=== PATIENT | female | born 1965 | race Asian ===

== ENCOUNTER 2017-05-24 08:53 | Inpatient (IN) | payer OTHER ==
[~2017-05-24] VITALS: Ht 152.4 cm; Wt 51.0 kg
[~2017-05-24 08:53] MED LIST: ALPOS OU; CIP500 PO; DEPL PO; FIBER-LAX PO; FLOINH4 INH; FOL1 PO; HYD25 PO; LAM25 PO; LOP50 PO; MULTIVITAMIN PO; OYSTER SHELL CAL PO; PRI20 PO; SUD30 PO; SYN5 PO; VITAMIN D3 PO; VITC PO; ZOC20 PO; [UNRECOGNIZED DRUG - CODE] PO; [UNRECOGNIZED DRUG - CODE] TOP
[2017-05-24 10:07] LABS: UA SPECIFIC GRAVITY <=1.005 (1.005-1.035); microscopic required? YES; urine erythrocyte 2+ (NEGATIVE)
[2017-05-24 10:46] LABS: RED CELL DISTRIBUTION WIDTH 14.2 % (11.5-14.5)
[2017-05-24 10:49] LABS: PLATELET COUNT 116 x10^3mcL (130-400)
[2017-05-24 11:00] LABS: BILIRUBIN TOTAL 0.6 mg/dL (0.20-1.00); CALCIUM 8.7 mg/dL (8.5-10.1); CARBON DIOXIDE 30.4 mmol/L (21-32); CREATININE SERUM 1.3 mg/dL (0.6-1.0); T4(THYROXINE) 8.6 ug/dL (4.7-13.3); TOTAL PROTEIN, SERUM 6.2 g/dL (6.4-8.2)
[2017-05-24 11:01] LABS: ALBUMIN 2.3 g/dL (3.4-5.0)
[2017-05-24 11:08] LABS: AMPHETAMINE QUAL UR NONE DETECTED (NEG <=1000)
[2017-05-24 11:20] LABS: BAND NEUTROPHIL 2 % (0-10); MONOCYTE 14 % (0-7); SEGMENTED NEUTROPHILS 78 % (37-75); rbc morphology (normal/abnorm) NORMAL (NORMAL)
[2017-05-24 13:31] VITALS: BP 102/61
[2017-05-24 13:41] LABS: MAGNESIUM 2.1 mg/dL (1.8-2.4)
[2017-05-24 13:44] LABS: CHOLESTEROL/HDL RATIO 5.4
[2017-05-24 13:50] LABS: T3 TOTAL 0.52 ng/mL
[2017-05-24 13:51] LABS: FREE T4 1.61 ng/dL (0.76-1.46); FREE THYROXINE INDEX 3.3 ug/dL (1.4-4.5); T4(THYROXINE) 8.6 ug/dL (4.7-13.3)
[2017-05-24] MEDS ORDERED: FLORANEX1 CT2 PO (15:15)
[2017-05-24] MEDS ORDERED: ADOINT TOP (15:19)
[2017-05-24 16:09] VITALS: BP 95/57
[2017-05-24 17:25] VITALS: BP 99/52
[2017-05-24 17:27] VITALS: Ht 152.4 cm; Wt 51.0 kg
[2017-05-25 06:27] VITALS: BP 104/62
[2017-05-25 06:56] LABS: CALCIUM 9.1 mg/dL (8.5-10.1); CARBON DIOXIDE 24.2 mmol/L (21-32); CREATININE SERUM 1.2 mg/dL (0.6-1.0); POTASSIUM SERUM 3.5 mmol/L (3.5-5.1)
[2017-05-25 07:32] LABS: RED CELL DISTRIBUTION WIDTH 14.4 % (11.5-14.5)
[2017-05-25 07:33] LABS: PLATELET COUNT 122 x10^3mcL (130-400)
[2017-05-25 07:49] VITALS: BP 102/58
[2017-05-25 10:17] VITALS: BP 102/58
[2017-05-25 11:47] LABS: BAND NEUTROPHIL 4 % (0-10); BASOPHIL 0 % (0-2); MONOCYTE 7 % (0-7); SEGMENTED NEUTROPHILS 86 % (37-75)
[2017-05-25 11:48] LABS: PLATELET MORPHOLOGY PLATELETS DECREASED; rbc morphology (normal/abnorm) ABNORMAL (NORMAL)
[2017-05-25 14:39] VITALS: BP 102/46
[2017-05-25 17:26] VITALS: BP 105/58
[2017-05-25 21:00] VITALS: BP 90/60
[2017-05-26 05:45] VITALS: BP 97/56
[2017-05-26 07:38] LABS: PLATELET COUNT 163 x10^3mcL (130-400)
[2017-05-26 07:49] LABS: RED CELL DISTRIBUTION WIDTH 14.7 % (11.5-14.5)
[2017-05-26 07:55] LABS: CALCIUM 9.5 mg/dL (8.5-10.1); CARBON DIOXIDE 28.3 mmol/L (21-32); CREATININE SERUM 1.4 mg/dL (0.6-1.0); POTASSIUM SERUM 3.5 mmol/L (3.5-5.1)
[2017-05-26 10:00] VITALS: BP 102/61
[2017-05-26 11:08] LABS: BAND NEUTROPHIL 4 % (0-10); BASOPHIL 0 % (0-2); SEGMENTED NEUTROPHILS 55 % (37-75)
[2017-05-26 11:09] LABS: MONOCYTE 26 % (0-7)
[2017-05-26 17:59] VITALS: BP 96/53
[2017-05-27 05:32] VITALS: BP 97/68
[2017-05-27 09:28] LABS: PLATELET COUNT 207 x10^3mcL (130-400)
[2017-05-27 10:03] VITALS: BP 98/62
[2017-05-27 11:39] LABS: RED CELL DISTRIBUTION WIDTH 15.3 % (11.5-14.5)
[2017-05-27 12:00] LABS: ATYPICAL LYMPH 6 %; BAND NEUTROPHIL 4 % (0-10); BASOPHIL 0 % (0-2); MONOCYTE 24 % (0-7); MYELOCYTE 3 % (0-2); SEGMENTED NEUTROPHILS 40 % (37-75)
[2017-05-27 12:01] LABS: PLATELET MORPHOLOGY PLATELETS NORMAL; rbc morphology (normal/abnorm) ABNORMAL (NORMAL)
[2017-05-27 17:48] VITALS: BP 165/75; BP 96/64
[2017-05-27 20:00] VITALS: BP 113/73
[2017-05-27 21:37] VITALS: BP 97/60
[2017-05-28 05:35] VITALS: BP 99/67
[2017-05-28 06:29] LABS: CALCIUM 8.8 mg/dL (8.5-10.1); CREATININE SERUM 1.2 mg/dL (0.6-1.0); MAGNESIUM 2.1 mg/dL (1.8-2.4); PHOSPHOROUS 3.9 mg/dL (2.5-4.9); POTASSIUM SERUM 3.7 mmol/L (3.5-5.1)
[2017-05-28 06:48] LABS: PLATELET COUNT 258 x10^3mcL (130-400)
[2017-05-28 07:09] LABS: RED CELL DISTRIBUTION WIDTH 15.4 % (11.5-14.5)
[2017-05-28 09:35] LABS: BAND NEUTROPHIL 5 % (0-10); BASOPHIL 0 % (0-2); MONOCYTE 24 % (0-7); MYELOCYTE 2 % (0-2); PLATELET MORPHOLOGY PLATELETS NORMAL; SEGMENTED NEUTROPHILS 49 % (37-75); rbc morphology (normal/abnorm) ABNORMAL (NORMAL)
[2017-05-28 09:55] VITALS: BP 110/43
[2017-05-28 10:02] VITALS: BP 137/63
[2017-05-28 17:31] VITALS: BP 106/60
[2017-05-28 20:55] VITALS: BP 106/56
[2017-05-29 05:53] VITALS: BP 99/57
[2017-05-29 06:13] LABS: PLATELET COUNT 297 x10^3mcL (130-400)
[2017-05-29 06:17] LABS: CALCIUM 8.7 mg/dL (8.5-10.1); CARBON DIOXIDE 26.1 mmol/L (21-32); CREATININE SERUM 1.2 mg/dL (0.6-1.0); POTASSIUM SERUM 3.8 mmol/L (3.5-5.1)
[2017-05-29 06:23] LABS: ALBUMIN 1.7 g/dL (3.4-5.0)
[2017-05-29 07:19] LABS: RED CELL DISTRIBUTION WIDTH 15.2 % (11.5-14.5)
[2017-05-29 09:00] VITALS: BP 97/50
[2017-05-29 10:30] LABS: BAND NEUTROPHIL 8 % (0-10); MONOCYTE 19 % (0-7); MYELOCYTE 1 % (0-2); SEGMENTED NEUTROPHILS 60 % (37-75)
[2017-05-29 10:31] LABS: rbc morphology (normal/abnorm) NORMAL (NORMAL)
[2017-05-29 17:31] VITALS: BP 88/52
[2017-05-29 18:00] VITALS: BP 90/55
[2017-05-29 21:29] VITALS: BP 105/47
[2017-05-30 06:02] VITALS: BP 100/61
[2017-05-30 06:36] LABS: CALCIUM 8.8 mg/dL (8.5-10.1); CARBON DIOXIDE 23.2 mmol/L (21-32); CREATININE SERUM 1.1 mg/dL (0.6-1.0); POTASSIUM SERUM 3.4 mmol/L (3.5-5.1)
[2017-05-30 06:37] LABS: PLATELET COUNT 356 x10^3mcL (130-400)
[2017-05-30 07:19] LABS: RED CELL DISTRIBUTION WIDTH 15.6 % (11.5-14.5)
[2017-05-30 09:59] VITALS: BP 108/59
[2017-05-30 10:08] LABS: BAND NEUTROPHIL 6 % (0-10); BASOPHIL 0 % (0-2); MYELOCYTE 1 % (0-2); SEGMENTED NEUTROPHILS 69 % (37-75)
[2017-05-30 10:09] LABS: MONOCYTE 11 % (0-7)
[2017-05-30 10:12] LABS: rbc morphology (normal/abnorm) ABNORMAL (NORMAL)
[2017-05-30 10:13] LABS: target cell (codocyte) 1+
[2017-05-30 17:38] VITALS: BP 107/59
[2017-05-30 20:00] VITALS: BP 105/56
[2017-05-31 06:18] LABS: CALCIUM 8.7 mg/dL (8.5-10.1); CARBON DIOXIDE 21.8 mmol/L (21-32); CREATININE SERUM 1.1 mg/dL (0.6-1.0); MAGNESIUM 1.9 mg/dL (1.8-2.4); PHOSPHOROUS 4.1 mg/dL (2.5-4.9); POTASSIUM SERUM 3.4 mmol/L (3.5-5.1)
[2017-05-31 06:19] VITALS: BP 110/71
[2017-05-31 06:42] LABS: PLATELET COUNT 386 x10^3mcL (130-400)
[2017-05-31 07:40] LABS: RED CELL DISTRIBUTION WIDTH 16.2 % (11.5-14.5)
[2017-05-31 09:13] LABS: BAND NEUTROPHIL 5 % (0-10); BASOPHIL 0 % (0-2); MONOCYTE 10 % (0-7); MYELOCYTE 2 % (0-2); SEGMENTED NEUTROPHILS 73 % (37-75); rbc morphology (normal/abnorm) ABNORMAL (NORMAL)
[2017-05-31 09:15] LABS: target cell (codocyte) 1+
[2017-05-31 10:24] VITALS: BP 131/64
[2017-05-31 17:07] VITALS: BP 107/66
[2017-05-31 21:36] VITALS: BP 97/51
[2017-06-01 05:47] VITALS: BP 123/73
[2017-06-01 06:45] LABS: BASOPHIL % 0.2 % (0-2)
[2017-06-01 06:47] LABS: PLATELET COUNT 423 x10^3mcL (130-400); RED CELL DISTRIBUTION WIDTH 16.1 % (11.5-14.5)
[2017-06-01 06:55] LABS: CALCIUM 8.4 mg/dL (8.5-10.1); CARBON DIOXIDE 21.6 mmol/L (21-32); CREATININE SERUM 1.2 mg/dL (0.6-1.0); POTASSIUM SERUM 3.9 mmol/L (3.5-5.1)
[2017-06-01 09:25] VITALS: BP 85/36
[2017-06-01 10:36] VITALS: BP 110/56
[2017-06-01 13:34] VITALS: BP 109/62
[2017-06-01 18:23] VITALS: BP 114/62
[2017-06-01 19:08] LABS: RED BLOOD CELLS 3.18 M/mm3 (4.10-5.10)
[2017-06-01 19:26] LABS: IRON 41 ug/dL (50-170)
[2017-06-01 19:28] LABS: TOTAL IRON BINDING CAPACITY 73 ug/dL (250-450)
[2017-06-02] VITALS (7 sets, daily range): BP systolic 78–102; BP diastolic 39–63
[2017-06-02 06:15] LABS: BASOPHIL % 0.5 % (0-2)
[2017-06-02 06:24] LABS: CALCIUM 8.4 mg/dL (8.5-10.1); CREATININE SERUM 1.3 mg/dL (0.6-1.0); POTASSIUM SERUM 3.9 mmol/L (3.5-5.1)
[2017-06-02 07:35] LABS: PLATELET COUNT 420 x10^3mcL (130-400); RED CELL DISTRIBUTION WIDTH 16.4 % (11.5-14.5)
[2017-06-03 04:49] VITALS: BP 107/43
[2017-06-03 07:18] LABS: BASOPHIL % 0.3 % (0-2)
[2017-06-03 07:21] LABS: PLATELET COUNT 410 x10^3mcL (130-400); RED CELL DISTRIBUTION WIDTH 15.7 % (11.5-14.5)
[2017-06-03 07:37] LABS: CALCIUM 8.3 mg/dL (8.5-10.1); CREATININE SERUM 1.3 mg/dL (0.6-1.0); POTASSIUM SERUM 3.7 mmol/L (3.5-5.1)
[2017-06-03 07:39] LABS: ALBUMIN 1.4 g/dL (3.4-5.0)
[2017-06-03 08:15] VITALS: BP 92/56
[2017-06-03 08:30] VITALS: BP 92/56
[2017-06-03] MEDS ORDERED: LEVAQUIN750 MG PO (13:10)
[2017-06-03] MEDS ORDERED: CLEOCIN HCL300 MG PO (13:14)
[2017-06-03 13:19] VITALS: BP 92/56
[2017-06-03 14:34] VITALS: BP 103/60
[2017-06-03] MEDS ORDERED: MVIL PO (15:26)
[2017-06-03] MEDS ORDERED: BETAMETHASONE D0.051 TP (15:26)
[2017-06-03] MEDS ORDERED: D-10001 TAB PO (15:26)
[2017-06-03] MEDS ORDERED: LOMOTIL1 TAB PO (15:37)
== END 2017-06-03 16:06 | disposition home health service (06) | DRG 177 ==
LOC: ED 08:53 → MU 11:49 → DU 11:49 → MU 05-27 09:37
PROVIDERS: Emergency Medicine; Family Medicine; ADMIT Family Medicine
DX: J69.0 Pneumonitis due to inhalation of food and vomit (principal); E43 Unspecified severe protein-calorie malnutrition; N17.0 Acute kidney failure with tubular necrosis; N39.0 Urinary tract infection, site not specified; E87.0 Hyperosmolality and hypernatremia; G80.9 Cerebral palsy, unspecified; G40.909 Epilepsy, unspecified, not intractable, without status epilepticus; D64.9 Anemia, unspecified; E87.6 Hypokalemia; E78.5 Hyperlipidemia, unspecified; E03.9 Hypothyroidism, unspecified; H40.9 Unspecified glaucoma; Z68.22 Body mass index [BMI] 22.0-22.9, adult; Z99.3 Dependence on wheelchair; Z66 Do not resuscitate; Z51.5 Encounter for palliative care
CPT/HCPCS: 82962; 83880; 84439; 87046; 87046-59; 90732; 92526-GN; 92610; 92611-GN; J0696; J1956; J2060; J2543; J3490; J7030; J7620; Q0092; Q9967

== ENCOUNTER 2018-10-13 09:37 | Inpatient (IN) | payer OTHER ==
[~2018-10-13] VITALS: Ht 152.4 cm; Wt 54.0 kg
[~2018-10-13 09:37] MED LIST changes: +ADOINT TOP; +BETAMETHASONE D0.051 TP; +CLEOCIN HCL300 MG PO; +D-10001 TAB PO; +FLORANEX1 CT2 PO; +LEVAQUIN750 MG PO; +LOMOTIL1 TAB PO; +MVIL PO
[2018-10-13 10:33] LABS: BASOPHIL % 0.1 % (0-2); PLATELET COUNT 198 x10^3mcL (130-400); RED CELL DISTRIBUTION WIDTH 13.4 % (11.5-14.5)
[2018-10-13 10:56] LABS: BILIRUBIN TOTAL 0.21 mg/dL (0.20-1.00); CARBON DIOXIDE 29.7 mmol/L (21-32); CREATININE SERUM 1.5 mg/dL (0.6-1.0); POTASSIUM SERUM 3.6 mmol/L (3.5-5.1); TOTAL PROTEIN, SERUM 6.9 g/dL (6.4-8.2)
[2018-10-13 10:57] LABS: ALBUMIN 2.2 g/dL (3.4-5.0)
[2018-10-13 11:58] LABS: UA SPECIFIC GRAVITY <1.005 (1.005-1.035); microscopic required? YES
[2018-10-13 12:08] LABS: urine erythrocyte 1+ (NEGATIVE)
[2018-10-13 12:16] LABS: T3 TOTAL 0.66 ng/mL
[2018-10-13 12:24] LABS: MAGNESIUM 2.4 mg/dL (1.8-2.4); PHOSPHOROUS 3.2 mg/dL (2.5-4.9)
[2018-10-13 12:25] LABS: CHOLESTEROL/HDL RATIO 4.5; FREE T4 1.34 ng/dL (0.76-1.46); FREE THYROXINE INDEX 3.4 ug/dL (1.4-4.5); T4(THYROXINE) 9.1 ug/dL (4.7-13.3)
[2018-10-13 12:59] LABS: AMPHETAMINE QUAL UR NONE DETECTED (See below)
[2018-10-13 15:22] VITALS: BP 146/94
[2018-10-13 15:26] VITALS: Ht 152.4 cm; Wt 54.0 kg
[2018-10-13 15:47] VITALS: BP 109/68
[2018-10-13 21:28] VITALS: BP 118/55
[2018-10-14 04:50] VITALS: BP 126/71
[2018-10-14 06:31] LABS: PLATELET COUNT 235 x10^3mcL (130-400); RED CELL DISTRIBUTION WIDTH 14.1 % (11.5-14.5)
[2018-10-14 06:49] LABS: CALCIUM 9.2 mg/dL (8.5-10.1); CARBON DIOXIDE 27.9 mmol/L (21-32); CREATININE SERUM 1.3 mg/dL (0.6-1.0); MAGNESIUM 2.2 mg/dL (1.8-2.4); PHOSPHOROUS 3.7 mg/dL (2.5-4.9); POTASSIUM SERUM 4.1 mmol/L (3.5-5.1)
[2018-10-14 09:19] LABS: ATYPICAL LYMPH 0 %; BAND NEUTROPHIL 8 % (0-10); BASOPHIL 0 % (0-2); MONOCYTE 12 % (0-7); SEGMENTED NEUTROPHILS 56 % (37-75); rbc morphology (normal/abnorm) NORMAL (NORMAL)
[2018-10-14 09:20] LABS: PLATELET MORPHOLOGY D
[2018-10-14 09:55] VITALS: BP 114/56
[2018-10-14 14:01] VITALS: BP 115/68
[2018-10-14 17:39] VITALS: BP 116/68
[2018-10-14 20:59] VITALS: BP 110/51
[2018-10-15 05:14] VITALS: BP 113/82
[2018-10-15 06:26] LABS: CALCIUM 9.4 mg/dL (8.5-10.1); CARBON DIOXIDE 27.3 mmol/L (21-32); CREATININE SERUM 1.4 mg/dL (0.6-1.0); MAGNESIUM 2.1 mg/dL (1.8-2.4); PHOSPHOROUS 3.9 mg/dL (2.5-4.9); POTASSIUM SERUM 4.1 mmol/L (3.5-5.1)
[2018-10-15 06:33] LABS: PLATELET COUNT 292 x10^3mcL (130-400); RED CELL DISTRIBUTION WIDTH 14.3 % (11.5-14.5)
[2018-10-15 08:30] VITALS: BP 108/56
[2018-10-15 11:00] LABS: BAND NEUTROPHIL 12 % (0-10); BASOPHIL 0 % (0-2); MONOCYTE 20 % (0-7); SEGMENTED NEUTROPHILS 39 % (37-75)
[2018-10-15 11:02] LABS: rbc morphology (normal/abnorm) ABNORMAL (NORMAL); target cell (codocyte) 1+; tear drop cell (dacryocyte) 1+
[2018-10-15 11:03] LABS: PLATELET MORPHOLOGY PLATELETS NORMAL
[2018-10-15 12:30] VITALS: BP 111/53
[2018-10-15 13:17] VITALS: BP 108/56
[2018-10-15 17:00] VITALS: BP 130/69
[2018-10-15 20:47] VITALS: BP 118/59
[2018-10-16 05:27] VITALS: BP 118/50
[2018-10-16 08:06] LABS: PLATELET COUNT 325 x10^3mcL (130-400); RED CELL DISTRIBUTION WIDTH 14.5 % (11.5-14.5)
[2018-10-16 08:22] LABS: CALCIUM 9.4 mg/dL (8.5-10.1); CARBON DIOXIDE 28.4 mmol/L (21-32); CREATININE SERUM 1.3 mg/dL (0.6-1.0); POTASSIUM SERUM 4.1 mmol/L (3.5-5.1)
[2018-10-16 09:05] LABS: BAND NEUTROPHIL 11 % (0-10); BASOPHIL 0 % (0-2); MONOCYTE 21 % (0-7)
[2018-10-16 09:09] LABS: PLATELET MORPHOLOGY PLATELETS NORMAL; SEGMENTED NEUTROPHILS 38 % (37-75); rbc morphology (normal/abnorm) ABNORMAL (NORMAL)
[2018-10-16 09:10] LABS: target cell (codocyte) 1+; tear drop cell (dacryocyte) 1+
[2018-10-16 09:27] VITALS: BP 112/78
[2018-10-16 12:29] VITALS: BP 93/47
[2018-10-16] MEDS ORDERED: MEROPENEM1 GM IV ×2 (13:23→15:48)
[2018-10-16 16:23] VITALS: BP 149/65
[2018-10-16 16:39] VITALS: BP 149/65
[2018-10-16 17:52] VITALS: BP 149/65
== END 2018-10-16 20:21 | disposition home or self-care (01) | DRG 177 ==
LOC: ED 09:37 → MU 11:36 → DU 11:36
PROVIDERS: Emergency Medicine; Internal Medicine
DX: J69.0 Pneumonitis due to inhalation of food and vomit (principal); G93.41 Metabolic encephalopathy; J96.00 Acute respiratory failure, unspecified whether with hypoxia or hypercapnia; N17.0 Acute kidney failure with tubular necrosis; E43 Unspecified severe protein-calorie malnutrition; G80.0 Spastic quadriplegic cerebral palsy; N39.0 Urinary tract infection, site not specified; E87.1 Hypo-osmolality and hyponatremia; B96.20 Unspecified Escherichia coli [E. coli] as the cause of diseases classified elsewhere; B96.5 Pseudomonas (aeruginosa) (mallei) (pseudomallei) as the cause of diseases classified elsewhere; I10 Essential (primary) hypertension; H40.9 Unspecified glaucoma; E03.9 Hypothyroidism, unspecified; E78.5 Hyperlipidemia, unspecified; K21.9 Gastro-esophageal reflux disease without esophagitis; G40.909 Epilepsy, unspecified, not intractable, without status epilepticus; D64.9 Anemia, unspecified; Z68.25 Body mass index [BMI] 25.0-25.9, adult; Z16.24 Resistance to multiple antibiotics
CPT/HCPCS: 83880; 84439; 92526-GN; 92610; 97110-GP; 97530-GP; J0696; J0713; J2185; J7030; Q0092

== ENCOUNTER 2018-11-03 08:33 | Emergency (ER) | payer OTHER ==
[~2018-11-03] VITALS: Ht 152.4 cm; Wt 49.4 kg
[~2018-11-03 08:33] MED LIST changes: +MEROPENEM1 GM IV
[2018-11-03 08:49] VITALS: Ht 152.4 cm; Wt 49.4 kg
[2018-11-03 11:08] VITALS: BP 111/72
== END 2018-11-03 11:08 | disposition home or self-care (01) ==
LOC: ED 08:33
DX: S01.81XA Laceration without foreign body of other part of head, initial encounter (principal); I10 Essential (primary) hypertension; F79 Unspecified intellectual disabilities; G80.9 Cerebral palsy, unspecified; E78.5 Hyperlipidemia, unspecified; K21.9 Gastro-esophageal reflux disease without esophagitis; E03.9 Hypothyroidism, unspecified; Z86.2 Personal history of diseases of the blood and blood-forming organs and certain disorders involving the immune mechanism; Z88.8 Allergy status to other drugs, medicaments and biological substances; W18.11XA Fall from or off toilet without subsequent striking against object, initial encounter; Y93.89 Activity, other specified; Y92.89 Other specified places as the place of occurrence of the external cause; Y99.8 Other external cause status
CPT/HCPCS: J2001

== ENCOUNTER 2019-03-30 16:43 | Emergency (ER) | payer OTHER ==
[~2019-03-30] VITALS: Ht 154.9 cm; Wt 48.5 kg
[2019-03-30 16:46] VITALS: BP 124/72; Ht 154.9 cm; Wt 48.5 kg
== END 2019-03-30 18:57 | disposition home or self-care (01) ==
LOC: ED 16:43
DX: K59.00 Constipation, unspecified (principal); G80.9 Cerebral palsy, unspecified; I10 Essential (primary) hypertension; K21.9 Gastro-esophageal reflux disease without esophagitis; E03.9 Hypothyroidism, unspecified; E78.5 Hyperlipidemia, unspecified; Z86.2 Personal history of diseases of the blood and blood-forming organs and certain disorders involving the immune mechanism; Z88.8 Allergy status to other drugs, medicaments and biological substances

== ENCOUNTER → 2019-05-14 | Outpatient (CLI) | payer OTHER | END | disposition home or self-care (01) | LOC: MA 09:47 | DX: Z12.31 Encounter for screening mammogram for malignant neoplasm of breast (principal) ==

== ENCOUNTER → 2019-12-10 | Outpatient (CLI) | payer OTHER | END | disposition home or self-care (01) | LOC: CT 09:44 | PROC: BW21ZZZ Computerized Tomography (CT Scan) of Abdomen and Pelvis (ICD-10-PCS; principal; 2019-12-10) | DX: N30.20 Other chronic cystitis without hematuria (principal); R33.9 Retention of urine, unspecified ==

== ENCOUNTER 2020-03-06 16:06 | Emergency (ER) | payer OTHER ==
[~2020-03-06] VITALS: Ht 165.1 cm; Wt 77.1 kg
[2020-03-06 16:19] VITALS: Ht 165.1 cm; Wt 77.1 kg
[2020-03-06 17:07] LABS: CALCIUM 9.3 mg/dL (8.5-10.1); CARBON DIOXIDE 28.5 mmol/L (21-32); CREATININE SERUM 1.2 mg/dL (0.6-1.0); POTASSIUM SERUM 4.5 mmol/L (3.5-5.1)
[2020-03-06 17:13] LABS: BILIRUBIN TOTAL 0.22 mg/dL (0.20-1.00); TOTAL PROTEIN, SERUM 6.6 g/dL (6.4-8.2)
[2020-03-06 17:15] LABS: ALBUMIN 3.2 g/dL (3.4-5.0); BASOPHIL % 0.3 % (0-2); PLATELET COUNT 195 x10^3mcL (130-400); RED CELL DISTRIBUTION WIDTH 15.3 % (11.5-14.5)
[2020-03-06 17:25] LABS: microscopic required? YES; urine erythrocyte TRACE (NEGATIVE)
[2020-03-06 20:16] VITALS: BP 142/73
== END 2020-03-06 20:16 | disposition home or self-care (01) ==
LOC: ED 16:06
PROVIDERS: Emergency Medicine
DX: N39.0 Urinary tract infection, site not specified (principal); R56.9 Unspecified convulsions; I10 Essential (primary) hypertension; K21.9 Gastro-esophageal reflux disease without esophagitis; E03.9 Hypothyroidism, unspecified; E78.5 Hyperlipidemia, unspecified; Z88.8 Allergy status to other drugs, medicaments and biological substances
CPT/HCPCS: J0696; J7030; J7060

== ENCOUNTER 2020-04-12 15:21 | Inpatient (IN) | payer OTHER ==
[~2020-04-12] VITALS: Ht 180.3 cm; Wt 60.3 kg
[2020-04-12 16:16] LABS: BASOPHIL % 0.4 % (0-2); PLATELET COUNT 212 x10^3mcL (130-400)
[2020-04-12 16:25] LABS: CALCIUM 9.1 mg/dL (8.5-10.1); CARBON DIOXIDE 27.4 mmol/L (21-32); CHLORIDE SERUM 96 mmol/L (98-107); CREATININE SERUM 1.5 mg/dL (0.6-1.0); GFR1 38 mL/min; GLUCOSE SERUM 81 mg/dL (74-106); SODIUM SERUM 129 mmol/L (136-145)
[2020-04-12 16:30] LABS: ALKALINE PHOSPHATASE 40 U/L (46-116); ALT/SGPT 12 U/L (14-59); AST/SGOT 7 U/L (15-37); BILIRUBIN TOTAL 0.19 mg/dL (0.20-1.00); TOTAL PROTEIN, SERUM 6.8 g/dL (6.4-8.2)
[2020-04-12 16:32] LABS: ALBUMIN 3.2 g/dL (3.4-5.0)
[2020-04-12 18:29] LABS: UA SPECIFIC GRAVITY 1.015 (1.005-1.035); microscopic required? YES; urine erythrocyte TRACE (NEGATIVE)
[2020-04-12 20:04] VITALS: BP 141/76
[2020-04-13 05:45] VITALS: BP 143/78
[2020-04-13 06:48] LABS: BASOPHIL % 0.5 % (0-2); PLATELET COUNT 212 x10^3mcL (130-400)
[2020-04-13 07:18] LABS: T4(THYROXINE) 6.9 ug/dL (4.7-13.3)
[2020-04-13 07:55] VITALS: BP 153/83
[2020-04-13 08:07] LABS: ERYTHROCYTE SED RATE 13 mm/hr (0-30)
[2020-04-13 12:12] VITALS: BP 140/79
[2020-04-13 16:31] VITALS: BP 145/76
[2020-04-13 20:55] VITALS: BP 129/87
[2020-04-14 05:07] LABS: RAPID PLASMA REAGIN Non Reactive (Non Reactive)
[2020-04-14 05:27] VITALS: BP 142/74
[2020-04-14 08:12] VITALS: BP 126/73
[2020-04-14 09:05] LABS: RHEUMATOID ARTHRITIS FACTOR <10.0 IU/mL (0.0-13.9)
[2020-04-14 14:17] VITALS: BP 126/73
== END 2020-04-14 15:38 | disposition home or self-care (01) | DRG 101 ==
LOC: ED 15:21 → DU 17:54
PROVIDERS: Emergency Medicine; ADMIT Internal Medicine; ATTEND Internal Medicine
DX: G40.909 Epilepsy, unspecified, not intractable, without status epilepticus (principal); N39.0 Urinary tract infection, site not specified; E87.1 Hypo-osmolality and hyponatremia; G80.9 Cerebral palsy, unspecified; Z88.8 Allergy status to other drugs, medicaments and biological substances; I10 Essential (primary) hypertension; E78.5 Hyperlipidemia, unspecified; K21.9 Gastro-esophageal reflux disease without esophagitis; E03.9 Hypothyroidism, unspecified; E86.0 Dehydration; Z82.49 Family history of ischemic heart disease and other diseases of the circulatory system; R33.9 Retention of urine, unspecified; K27.9 Peptic ulcer, site unspecified, unspecified as acute or chronic, without hemorrhage or perforation
CPT/HCPCS: 86431; 92526-GN; 92610-GN; C9113; G0378; J1953; J1956; J2060; J7042; Q0092